=== PATIENT | male | born 1955 | race Caucasian/White ===

== ENCOUNTER 2024-04-01 22:27 | Inpatient (IN) | payer MEDICARE, OTHER ==
[~2024-04-01] VITALS: Ht 177.8 cm; Wt 81.8 kg
[2024-04-01 23:56] LABS: BASO # 0.1 10^3/uL (0.0-0.2); BASO % 0.9 % (0.0-1.0); EOS # 1.6 10^3/uL (0.0-0.5); EOS % 13.4 % (0.0-3.0); HEMATOCRIT 42.2 % (42.0-52.0); HEMOGLOBIN 14.5 g/dl (13.5-17.5); LYMPH # 1.6 10^3/uL (1.5-5.0); LYMPH % 13.3 % (24.0-44.0); MEAN CORPUSCULAR HEMOGLOBIN 31.4 pg (27.0-33.0); MEAN CORPUSCULAR HGB CONC 34.4 g/dl (32.0-36.5); MEAN CORPUSCULAR VOLUME 91.3 fl (80.0-96.0); MONO # 0.7 10^3/uL (0.0-0.8); MONO % 5.8 % (2.0-8.0); NEUTROPHILS # 8.1 10^3/uL (1.5-8.5); NEUTROPHILS % 66.3 % (36.0-66.0); PLATELET COUNT, AUTOMATED 215 10^3/uL (150-450); RED BLOOD COUNT 4.62 10^6/uL (4.30-6.10); WHITE BLOOD COUNT 12.2 10^3/uL (4.0-10.0)
[2024-04-02] VITALS (8 sets, daily range): BP systolic 119–144; BP diastolic 63–96; TEMP 97.7–98.3; O2SAT 97–99
[2024-04-02] MEDS: UNRESOLVED CLARIFICATION ENTRY XX STA (00:07)
[2024-04-02 00:22] LABS: BLOOD UREA NITROGEN 15 MG/DL (9-23); CALCIUM LEVEL 8.8 MG/DL (8.3-10.6); CARBON DIOXIDE LEVEL 25 MMOL/L (20-31); CHLORIDE LEVEL 106 MMOL/L (98-107); CK-MB VALUE MASS 4.8 NG/ML (<3.6); CREATININE FOR GFR 1.13 MG/DL (0.70-1.30); GLOMERULAR FILTRATION RATE > 60.0 (>49); GLUCOSE, FASTING 127 MG/DL (74-106); POTASSIUM SERUM 3.8 MMOL/L (3.5-5.1); SODIUM LEVEL 140 MMOL/L (136-145)
[2024-04-02 00:23] LABS: CPK CREATINE PHOSPHOKINASE 372 U/L (46-171); MB/CK RELATIVE INDEX 1.29 (< OR =4)
[2024-04-02] MEDS: NS 1,000 ML IV ONE (00:24)
[2024-04-02 00:38] LABS: ALBUMIN 4.2 G/DL (3.2-5.2); ALKALINE PHOSPHATASE 104 U/L (46-116); ALT/SGPT 25 U/L (7.0-40); AST/SGOT 22 U/L (<34); BILIRUBIN,DIRECT 0.1 MG/DL (<0.4); BILIRUBIN,TOTAL 0.4 MG/DL (0.3-1.2); TOTAL PROTEIN 6.9 G/DL (5.7-8.2)
[2024-04-02 00:40] LABS: THYROID STIMULATING HORMONE 5.017 uIU/ML (0.55-4.78)
[2024-04-02] MEDS ORDERED: ISOVUE-370 76% 100ML VIAL As Ordered ONE (01:05)
[2024-04-02] MEDS ORDERED: ACETAMINOPHEN TAB 650MG DOSE (2X325MG) PO PRN (04:10)
[2024-04-02] MEDS ORDERED: UNRESOLVED CLARIFICATION ENTRY XX STA (05:36)
[2024-04-02] MEDS ORDERED: CLOP75TA2 PO (06:16)
[2024-04-02] MEDS ORDERED: REPA140I2 INJ (06:16)
[2024-04-02] MEDS ORDERED: SILD20TA11 PO (06:16)
[2024-04-02] MEDS ORDERED: AMLO1TAB24 PO (06:16)
[2024-04-02] MEDS ORDERED: NITR0.4S14 PO (06:17)
[2024-04-02] MEDS ORDERED: METO1TAB7 PO (06:17)
[2024-04-02] MEDS ORDERED: THERTAB52 PO (06:18)
[2024-04-02] MEDS ORDERED: HOME MED LIST COMPLETE! XX SCH (06:20)
[2024-04-02] MEDS: DOCUSATE SODIUM 100MG CAPSULE PO SCH (09:00)
[2024-04-02] MEDS: METOPROLOL SUCC (TopROL XL) 50MG **XL** TAB PO SCH (09:00)
[2024-04-02] MEDS: PANTOPRAZOLE 40MG VIAL IV SCH (10:46)
[2024-04-02] MEDS: ENOXAPARIN 40MG/0.4ML SYRINGE (J1650 PER 10MG) SC SCH (10:47)
[2024-04-02] MEDS: CLOPIDOGREL 75 MG TAB PO SCH (16:44)
[2024-04-02] MEDS: amLODIPine 5 MG TAB PO SCH (21:08)
[2024-04-03] VITALS: BP 152/77; TEMP 98.4; O2SAT 97
[2024-04-03 04:00] VITALS: BP 129/74; TEMP 97.9; O2SAT 100
[2024-04-03 05:18] LABS: HEMATOCRIT 38.9 % (42.0-52.0); HEMOGLOBIN 13.6 g/dl (13.5-17.5); MEAN CORPUSCULAR HEMOGLOBIN 31.3 pg (27.0-33.0); MEAN CORPUSCULAR VOLUME 89.4 fl (80.0-96.0); PLATELET COUNT, AUTOMATED 174 10^3/uL (150-450); RED BLOOD COUNT 4.35 10^6/uL (4.30-6.10); WHITE BLOOD COUNT 7.2 10^3/uL (4.0-10.0)
[2024-04-03 06:04] LABS: ALBUMIN 3.4 G/DL (3.2-5.2); ALKALINE PHOSPHATASE 93 U/L (46-116); ALT/SGPT 20 U/L (7.0-40); AST/SGOT 15 U/L (<34); BILIRUBIN,TOTAL 0.4 MG/DL (0.3-1.2); BLOOD UREA NITROGEN 13 MG/DL (9-23); CALCIUM LEVEL 8.7 MG/DL (8.3-10.6); CARBON DIOXIDE LEVEL 27 MMOL/L (20-31); CHLORIDE LEVEL 109 MMOL/L (98-107); CREATININE FOR GFR 1.03 MG/DL (0.70-1.30); GLOMERULAR FILTRATION RATE > 60.0 (>49); GLUCOSE, FASTING 100 MG/DL (74-106); POTASSIUM SERUM 3.9 MMOL/L (3.5-5.1); SODIUM LEVEL 142 MMOL/L (136-145)
[2024-04-03 08:00] VITALS: BP 128/75; TEMP 98.1; O2SAT 99
[2024-04-03] MEDS ORDERED: LEVO25TA5 PO (09:31)
== END 2024-04-03 11:31 | disposition home or self-care (01) | DRG 312 ==
LOC: M ED 22:27 → M ED INP 04-02 04:09 → M ICU 04-02 08:42
PROVIDERS: ADMIT Internal Medicine; ATTEND Family Medicine
PROC: B246ZZZ Ultrasonography of Right and Left Heart (ICD-10-PCS; principal; 2024-04-02)
DX: R55 Syncope and collapse (principal); I25.10 Atherosclerotic heart disease of native coronary artery without angina pectoris; K21.9 Gastro-esophageal reflux disease without esophagitis; T44.7X5A Adverse effect of beta-adrenoreceptor antagonists, initial encounter; E02 Subclinical iodine-deficiency hypothyroidism; I10 Essential (primary) hypertension; M10.9 Gout, unspecified; Z95.1 Presence of aortocoronary bypass graft; Z87.891 Personal history of nicotine dependence; Z79.899 Other long term (current) drug therapy